=== PATIENT | male | born 1950 | race Caucasian/White ===

== ENCOUNTER 2017-11-25 12:06 | Emergency (ER) | payer MEDICARE ==
[~2017-11-25] VITALS: Ht 185.4 cm; Wt 110.3 kg
[2017-11-25 12:08] VITALS: BP 223/136
== END 2017-11-25 16:15 | disposition home or self-care (01) ==
LOC: ED 13:04
DX: K64.4 Residual hemorrhoidal skin tags (principal); I10 Essential (primary) hypertension
CPT/HCPCS: 74021; 99284